=== PATIENT | female | born 1985 | race Caucasian/White ===

== ENCOUNTER 2020-05-30 13:15 | Emergency (ER) | payer OTHER ==
--- NOTE | 2020-05-30 13:47 | ED Physician Documentation ---
PD HPI URI - Stated complaint Stated Complaint: HEAD/THROAT PX - Chief complaint Chief Complaint: Heent - History obtained from History obtained from: Patient - History of Present Illness Timing - onset: How many days ago (2) Timing duration: Days (2) Timing details: Abrupt onset, Still present Associated symptoms: Chills, Nasal congestion, Sore throat, Dry cough. No: Productive cough, Dyspnea Contributing factors: No: Sick contact, Travel, Immunocompromised, COPD / asthma Improves by: Rest Worsened by: Activity Similar symptoms before: Has not had sx before Recently seen: Not recently seen Review of Systems Constitutional: reports: Chills, Myalgias, Fatigue Nose: reports: Rhinorrhea / runny nose, Sinus pressure / pain Throat: reports: Sore throat Cardiac: denies: Chest pain / pressure Respiratory: reports: Cough (mild). denies: Dyspnea, Wheezing GI: reports: Nausea. denies: Vomiting, Diarrhea : denies: Dysuria Skin: denies: Rash Neurologic: reports: Generalized weakness. denies: Focal weakness, Near syncope PD PAST MEDICAL HISTORY - Past Medical History Cardiovascular: None Respiratory: None Endocrine/Autoimmune: None - Present Medications Home Medications: Ambulatory Orders Medication Instructions Recorded Confirmed Ondansetron Odt [Zofran] 4 mg TL Q6H PRN #10 tablet 05/30/20 dexAMETHasone [Decadron] 4 mg PO DAILY #5 tablet 05/30/20 - Allergies Allergies/Adverse Reactions: Allergies Allergy/AdvReac Type Severity Reaction Status Date / Time No Known Drug Allergies Allergy Verified 05/30/20 13:34 - Living Situation Living Arrangement: reports: At home - Social History Does the pt smoke?: No PD ED PE NORMAL - Vitals Vital signs reviewed: Yes - General General: Alert and oriented X 3, No acute distress, Well developed/nourished - HEENT HEENT: Ears normal, Moist mucous membranes, Pharynx benign - Neck Neck: Supple, no meningeal sign, No adenopathy - Cardiac Cardiac: RRR, No murmur - Respiratory Respiratory: Clear bilaterally - Abdomen Abdomen: Soft, Non tender, No organomegaly - Back Back: No CVA TTP - Derm Derm: Normal color, Warm and dry, No rash - Extremities Extremities: Normal ROM s pain - Neuro Neuro: Alert and oriented X 3, No motor deficit, Normal speech Results - Vitals Vitals: Vital Signs - 24 hr 05/30/20 05/30/20 13:27 15:22 Temperature 36.6 C 36.6 C Heart Rate 75 76 Respiratory 16 16 Rate Blood Pressure 126/88 H 124/88 H O2 Saturation 99 100 Oxygen O2 Source Room air PD MEDICAL DECISION MAKING - ED course Complexity details: reviewed results, considered differential, d/w patient Departure - Departure Disposition: 01 Home, Self Care Clinical Impression: Upper respiratory infection Qualifiers: URI type: unspecified URI Qualified Code(s): J06.9 - Acute upper respiratory infection, unspecified Condition: Stable Record reviewed to determine appropriate education?: Yes Instructions: ED Upper Resp Infec No Abx Tx Follow-Up: [facility] Fayekatt Armstrong [Provider Group] Prescriptions: dexAMETHasone [Decadron] 4 mg PO DAILY #5 tablet Ondansetron Odt [Zofran] 4 mg TL Q6H PRN #10 tablet PRN Reason: Nausea / Vomiting Comments: Your respiratory Covid test will not result till tomorrow or so. Meanwhile we will presume some upper respiratory infection or inflammation which typically is going be viral. Continue with allergy medicine such as cetirizine or Claritin. You could add Decadron steroid for inflammation daily for the next several days as well. Stay well-hydrated. Tylenol or ibuprofen for fevers or pains. Ondansetron if needed for nausea. Recheck if not improving well over the next several days or so. Follow-up if you have more purulent drainage from the sinuses or such that might suggest more bacterial infection. Discharge Date/Time: 05/30/20 15:22
[2020-05-30] MEDS ORDERED: DEXAMETHASONE 10 MG/ML VIAL PO STA (14:24)
[2020-05-30] MEDS ORDERED: CETIRIZINE 10 MG TABLET PO STA (14:24)
[2020-05-30] MEDS ORDERED: CHERRY SYRUP 10 ML UDC PO ONE (14:24)
[2020-05-30 15:23] VITALS: BP 124/88
== END 2020-05-30 15:22 | disposition home or self-care (01) ==
LOC: ED 13:15
DX: J06.9 Acute upper respiratory infection, unspecified (principal); Z20.828 Contact with and (suspected) exposure to other viral communicable diseases
CPT/HCPCS: 87635; 99283; A9270

== ENCOUNTER 2020-06-16 01:44 | Emergency (ER) | payer OTHER ==
--- NOTE | 2020-06-16 01:48 | ED Physician Documentation ---
PD HPI HEADACHE - Stated complaint Stated Complaint: FINN, VOMITING - History obtained from History obtained from: Patient - History of Present Illness Timing - onset: Today (this evening) Timing - onset during: Rest Timing - duration: Hours Timing - details: Gradual onset Location: Front (bifrontal) Quality: Throbbing, Aching Improved by: Rest, Dark room Worsened by: Light Similar symptoms before: Diagnosis (sinusitis) Recently seen: Clinic, Emergency Dept - Additional information Additional information: c/o bifrontal headache since earlier this evening with nausea and vomiting. no improvement after taking ibuprofen. headache is worse with light, vomiting Patient was T+R from this ED 2.5 weeks ago for nonspecific viral URI (coronavirus test result was negative). she was evaluated last week at [facility] and diagnosed with sinusitis for which she was prescribed a BID antibiotic the name of which she cannot recall. she denies h/o similar headaches compared to mara's Review of Systems Constitutional: denies: Fever, Chills, Myalgias, Sweats Eyes: reports: Photophobia. denies: Loss of vision, Decreased vision Ears: reports: Reviewed and negative Nose: reports: Congestion. denies: Sinus pressure / pain Throat: reports: Reviewed and negative Cardiac: reports: Reviewed and negative Respiratory: reports: Reviewed and negative GI: reports: Nausea, Vomiting. denies: Abdominal Pain : denies: Dysuria, Frequency, Now EGA Skin: denies: Rash Musculoskeletal: denies: Neck pain Neurologic: reports: Headache. denies: Generalized weakness, Focal weakness, Numbness PD PAST MEDICAL HISTORY - Past Medical History Cardiovascular: None Respiratory: None Endocrine/Autoimmune: None - Present Medications Home Medications: Ambulatory Orders Medication Instructions Recorded Confirmed Ondansetron Odt [Zofran Odt] 4 mg TL Q6H PRN #10 tablet 06/16/20 traMADol [Ultram] 50 - 100 mg PO Q6H PRN #20 tablet 06/16/20 - Allergies Allergies/Adverse Reactions: Allergies Allergy/AdvReac Type Severity Reaction Status Date / Time No Known Drug Allergies Allergy Verified 05/30/20 13:34 - Social History Does the pt smoke?: No Smoking Status: Never smoker PD ED PE NORMAL - Vitals Vital signs reviewed: Yes - General General: Alert and oriented X 3, Well developed/nourished, Other (appears to be in mild/moderate discomfort; lights are out for patient comfort due to photophobia) - HEENT HEENT: PERRL, EOMI, Moist mucous membranes - Neck Neck: Supple, no meningeal sign - Cardiac Cardiac: RRR, No murmur - Respiratory Respiratory: No respiratory distress, Clear bilaterally - Abdomen Abdomen: Soft, Non tender - Neuro Neuro: Alert and oriented X 3, outpatient coordinator 2-12 intact, No motor deficit, No sensory deficit, Normal speech Eye Opening: Spontaneous Motor: Obeys Commands Verbal: Oriented GCS Score: 15 Results - Vitals Vitals: Vital Signs - 24 hr 06/16/20 06/16/20 06/16/20 01:52 01:56 03:56 Temperature 35.4 C L 35.4 C L 36.3 C L Heart Rate 113 H 120 H 80 Respiratory 118 H 22 16 Rate Blood Pressure 128/95 H 125/95 H 100/66 O2 Saturation 100 100 98 06/16/20 05:00 Temperature 36.5 C Heart Rate 80 Respiratory 14 Rate Blood Pressure 109/67 O2 Saturation 99 Oxygen O2 Source Room air - Labs Labs: Laboratory Tests 06/16/20 06/16/20 02:16 02:16 WBC 10.3 RBC 4.64 Hgb 13.1 Hct 39.2 MCV 84.5 MCH 28.2 MCHC 33.4 RDW 13.2 Plt Count 386 MPV 8.6 Neut # (Auto) 6.4 Lymph # (Auto) 2.8 Tucker # (Auto) 0.8 Eos # (Auto) 0.2 Baso # (Auto) 0.1 Absolute Nucleated RBC 0.00 Nucleated RBC % 0.0 Sodium 137 Potassium 3.2 L Chloride 102 Carbon Dioxide 23 Anion Gap 12.0 BUN 12 Creatinine 0.8 Estimated GFR (MDRD) 82 L Glucose 123 H Calcium 9.3 Total Bilirubin 0.7 AST 17 ALT 19 Alkaline Phosphatase 47 Total Protein 7.7 Albumin 4.5 Globulin 3.2 Albumin/Globulin Ratio 1.4 Lipase 27 - Rads (name of study) CT head Radiology: Prelim report reviewed, See rad report PD MEDICAL DECISION MAKING - ED course Complexity details: reviewed old records, reviewed results, re-evaluated patient, considered differential, d/w patient ED course: patient reported improvement with IV fluids, zofran, and toradol. she declined narcotic/opiate medications although agreeable to tramadol prior to d/c for residual headache (I explained to her that ultram has some opiate-like qualities), as well as a second dose of zofran and rx for tramadol and zofran provided. Reassuring blood tests (mild hypokalemia for which she was given 20meq KCL PO) and unremarkable CT scan Departure - Departure Disposition: 01 Home, Self Care Clinical Impression: Headache, Hypokalemia Condition: Good Instructions: ED Cephalgia Unspecified, ED Potassium Deficiency Prescriptions: traMADol [Ultram] 50 - 100 mg PO Q6H PRN #20 tablet PRN Reason: Headache Ondansetron Odt [Zofran Odt] 4 mg TL Q6H PRN #10 tablet PRN Reason: Nausea / Vomiting Discharge Date/Time: 06/16/20 05:05
[2020-06-16] MEDS ORDERED: SODIUM CHLORIDE 0.9% 1,000 ML IV STA (02:11)
[2020-06-16] MEDS ORDERED: ONDANSETRON 4 MG/2 ML VIAL IVP STA (02:11)
[2020-06-16] MEDS ORDERED: KETOROLAC 30 MG/ML VIAL IVP STA (02:12)
[2020-06-16 02:21] LABS: BASOPHILS # (AUTO) 0.1 10^3/uL (0.0-0.1); BASOPHILS % (AUTO) 0.8 %; EOSINOPHILS # (AUTO) 0.2 10^3/uL (0.0-0.7); EOSINOPHILS % (AUTO) 2.3 %; HGB - HEMOGLOBIN 13.1 g/dL (12.0-16.0); LYMPHOCYTES # (AUTO) 2.8 10^3/uL (1.5-3.5); LYMPHOCYTES % (AUTO) 27.1 %; MEAN CORPUSCULAR HEMOGLOBIN 28.2 pg (27.0-31.0); MEAN CORPUSCULAR HGB CONC 33.4 g/dL (32.0-36.0); MEAN CORPUSCULAR VOLUME 84.5 fL (81.0-99.0); MEAN PLATELET VOLUME 8.6 fL (7.9-10.8); MONOCYTES # (AUTO) 0.8 10^3/uL (0.0-1.0); MONOCYTES % (AUTO) 7.7 %; NEUTROPHILS # (AUTO) 6.4 10^3/uL (1.5-6.6); NEUTROPHILS % (AUTO) 61.8 %; PLT - PLATELET COUNT 386 10^3/uL (130-450); RED BLOOD COUNT 4.64 10^6/uL (4.20-5.40); RED CELL DISTRIBUTION WIDTH 13.2 % (12.0-15.0); WHITE BLOOD COUNT 10.3 x10^3/uL (4.8-10.8)
[2020-06-16 02:35] LABS: ALBUMIN 4.5 g/dL (3.2-5.5); ALBUMIN/GLOBULIN RATIO 1.4 (1.0-2.2); BILIRUBIN,TOTAL 0.7 mg/dL (0.2-1.0); CALCIUM 9.3 mg/dL (8.5-10.3); CREATININE 0.8 mg/dL (0.4-1.0); TOTAL PROTEIN 7.7 g/dL (6.7-8.2)
[2020-06-16] MEDS ORDERED: ONDANSETRON ODT 4 MG TABLET TL STA (04:36)
[2020-06-16] MEDS ORDERED: traMADol 50 MG TABLET PO STA (04:38)
[2020-06-16] MEDS ORDERED: POTASSIUM CHLORIDE 20 MEQ TABLET PO STA (04:41)
[2020-06-16 05:03] VITALS: BP 109/67
--- NOTE | 2020-06-16 08:28 | CT Report ---
PROCEDURE: HEAD WO INDICATIONS: Headache TECHNIQUE: Noncontrast 4.5 mm thick angled axial sections acquired from the foramen magnum to the vertex. For r adiation dose reduction, the following was used: automated exposure control, adjustment of mA and/or kV according to patient size. COMPARISON: None. FINDINGS: Image quality: Excellent. CSF spaces: Basal cisterns are patent. No extra-axial fluid collections. Ventricles are normal in size and shape. Brain: No midline shift. No intracranial masses or hemorrhage. Bazan-white matter interface is norm al. Skull and face: Calvarium and visualized facial bones are intact, without suspicious lesions. Sinuses: Visualized sinuses and mastoids are clear. IMPRESSION: No acute intracranial finding. Reviewed by: Adam Mullen MD on 06/16/2020 8:26 AM [facility] Approved by: Adam Mullen MD on 06/16/2020 8:26 AM [facility] Station ID: [id number]
== END 2020-06-16 05:05 | disposition home or self-care (01) ==
LOC: ED 01:44
DX: R51.9 Headache, unspecified (principal); R11.2 Nausea with vomiting, unspecified; E87.6 Hypokalemia
CPT/HCPCS: 36415; 70450; 80053; 83690; 85025; 96374; 96375; 99284; A9270; Q0162

== ENCOUNTER 2022-09-11 09:23 | Outpatient (CLI) | payer OTHER ==
--- NOTE | 2022-09-11 13:42 | XRAY Report ---
PROCEDURE: Foot 2 View RT INDICATIONS: PAIN IN RIGHT FOOT TECHNIQUE: 2 views of the foot were acquired. COMPARISON: None FINDINGS: Bones: No fractures or dislocations. No suspicious bony lesions. Soft tissues: No tibiotalar joint effusion. Achilles tendon appears normal. IMPRESSION: Normal right foot radiographs Reviewed by: Kristian Leslie MD on 09/11/2022 12:40 PM [facility] Approved by: Kristian Leslie MD on 09/11/2022 12:40 PM [facility] Station ID: [id number]
== END 2022-09-11 09:24 | disposition home or self-care (01) ==
LOC: DI 09:23
PROVIDERS: ATTEND Nurse Practitioner
DX: M79.671 Pain in right foot (principal)